=== PATIENT | male | born 1960 | race Caucasian/White ===

== ENCOUNTER 2023-09-28 02:46 | Day surgery (SDC) | payer BC, SELFPAY ==
[2023-09-28] VITALS (9 sets, daily range): BP systolic 130–161; BP diastolic 83–93; BMI 27.7; BMI 27.3
--- NOTE | 2023-09-28 04:44 | DOWNTIME ---
There was a [employer] Downtime on 09/28/2023 from 0111 to 09/28/2023 at 0405. Downtime documentation of patient's care, including medication administrations, has been reconciled in the electronic record per guidelines. Refer to the
patient's paper chart under the miscellaneous tab to see printed paper medication records and downtime forms.
[2023-09-28 04:57] LABS: % Basophils 0.3 % (0-2); % Eosinophils 0.8 % (0-6); % Immature Granulocytes 0.3 % (0-0.5); % Lymphocytes 24.6 % (20.5-51.1); % Monocytes 5.9 % (1.7-9.3); % Neutrophils 68.1 % (42.2-75.2); Absolute Eosinophils 0.1 10^3/uL (0-0.7); Absolute Monocytes 0.7 10^3/uL (0.1-0.6); Absolute Neutrophils 8.2 10^3/uL (1.4-6.5); Hematocrit 44.6 % (39.0-52.0); Hemoglobin 16.1 g/dL (13.0-18.0); Mean Corp Hgb Conc. 36.1 g/dL (33.0-37.0); Mean Corpuscular Hgb 33.7 pg (27.0-31.0); Mean Corpuscular Volume 93.3 fL (80.0-94.0); Mean Platelet Volume 9.7 fL (7.4-10.4); Nucleated Red Blood Cells % 0 % (-); Platelet Count 211 10^3/uL (130-400); Red Blood Cell Count 4.78 10^6/uL (4.70-6.10); Red Cell Dist. Width 11.8 % (11.5-14.5)
[2023-09-28 05:07] LABS: ALT (SGPT) 26 U/L (0-50); AST (SGOT) 29 U/L (17-59); Albumin 4.6 g/dl (3.5-5.0); Alkaline Phosphatase 87 U/L (38-126); Blood Urea Nitrogen 19 mg/dl (9-20); Calcium 9.9 mg/dl (8.4-10.2); Carbon Dioxide 20 mmol/L (22-30); Chloride 101 mmol/L (98-107); Glucose 176 mg/dl (70-99); Potassium 3.9 mmol/L (3.5-5.1); Sodium 135 mmol/L (135-145); Total Bilirubin 1.2 mg/dl (0.2-1.3); eGFR > 60.00
--- NOTE | 2023-09-28 05:10 | ED.GENMED ---
History of Present Illness
General
Chief Complaint: Abdominal Pain
Source: patient
Exam Limitations: none
Nursing documentation reviewed up to this point in time: agreed with
History of Present Illness
History of Present Illness:
63-year-old male with history as documented presents to the emergency room for evaluation of abdominal and flank pain. Patient reports onset of symptoms yesterday morning and they have been waxing and waning throughout the day. He reports that
this evening pain began to radiate towards the right low back/flank and became much more intense. Associated with nausea and vomiting. No diarrhea in fact patient says he has been constipated for the past 2 days. Denies any fevers or chills.
Denies any dysuria, hematuria, change in urinary frequency. He denies similar symptoms in the past. He denies any history of prior abdominal surgeries.
Review of Systems
Review of Systems
All Other Systems: ROS reviewed and negative except as documented in HPI and ROS
Constitutional: Denies fever or chills
Respiratory: Denies trouble breathing
Cardiac: Denies chest pain
ABD/GI: Reports abdominal pain, nausea, vomiting and constipated; Denies diarrhea
: Reports flank pain; Denies dysuria, frequency or bleeding
Musculoskeletal: Reports back pain; Denies neck pain
Neurological: Denies headache, weakness or numbness
Phy Exam
Physical Exam
Physical Exam:
General: Awake, alert, oriented x3; appears very uncomfortable
Head: Normocephalic, atraumatic
Eyes: Conjunctiva normal, sclera anicteric
Throat: Airway intact, handling secretions
Neck: Trachea midline, supple without meningismus
Lungs: Clear to auscultation bilaterally, no wheezing, rales, rhonchi
Heart: Tachycardia with regular rhythm, no murmurs, gallops, or rubs
Abd: Soft, non distended, nontender with no masses
Back: No CVA tenderness
Neuro: Cranial nerves grossly intact, speech fluid
Skin: no rash
Extremities: No edema in extremities, warm and well-perfused
Scores
Heart Failure Risk
Heart Failure Risk Score: Not Applicable
Heart Score for Chest Pain Patients
STEMI patient?: Not applicable
Withdrawal Assessment of Alcohol
Withdrawal Assessment Completed?: Not applicable
Course
Orders/Labs/Results
Orders:
Orders
09/28/23
CT Abd/pel Without Iv Or Oral Urgent
Reason For Exam: rt flank pain
09/28/23 03:20
Complete Blood Count/With Diff Routine
Comprehensive Metabolic Panel Routine
09/28/23 05:04
0.9% Sodium Chloride 500 ml [Nss] 500 ml IV BOLUS
Ketorolac [Toradol] 15 mg IV NOW STA
09/28/23 05:07
UROLOGY CONSULT Urgent
Consulting Provider: Breezy Haddad
Was physician already notified: Yes
Abnormal Lab Results
09/28/23
03:20
WBC 12.0 H 10^3/uL
(4.8-10.8)
MCH 33.7 H pg
(27.0-31.0)
Absolute Neuts (auto) 8.2 H 10^3/uL
(1.4-6.5)
Absolute Monos (auto) 0.7 H 10^3/uL
(0.1-0.6)
Carbon Dioxide 20 L mmol/L
(22-30)
Glucose 176 H mg/dl
(70-99)
09/28/23 03:20
09/28/23 03:20
MDM/Problems Addressed
Differential Diagnosis Includes:
Nephrolithiasis, UTI/pyelonephritis, appendicitis, enteritis, constipation
MDM/Problems Addressed:
63-year-old male presents for evaluation of abdominal pain now radiating to the right low back/flank waxing and waning intensity all day but generally worsening. Associate with nausea and vomiting as well as some constipation. Appears quite
uncomfortable, vital signs and exam as documented. Plan to place an IV check labs including a CBC and a CMP, urinalysis. Will send for CT of the abdomen pelvis. Will treat pain and nausea. Provide IV fluids. Monitor closely reassess after the
above.
Labs reviewed: CBC shows slight leukocytosis to 12. CMP shows no clinically significant abnormalities. CT of the abdomen pelvis read by vision radiology: Patient has a 6 mm stone in the right ureter with mild right hydronephrosis. Patient's pain
has been quite poorly controlled here has had multiple rounds of parenteral pain control with at best transient control. Will plan to admit for continued management of his obstructive kidney stone. Discussed with urology for consultation.
Discussed with hospitalist for admission.
*Radiology
Radiology exam reviewed: radiology read reviewed
*Pulse Oximetry
Patient hypoxic: no
*Critical Care Note
Total Time (30-74mins, 75-104mins- exclusive of procedures): Not Applicable
Data Reviewed
Source: patient and spouse
Patient Management
Discussion with other providers: Hospitalist (Discussed with hospitalist) and Automotive Shop Foreman (Discussed with urology)
Escalation/DeEscalation of care consider admission/obs:
Admission indicated
ED Attending Note
-
Portions of this chart may have been created with voice recognition software.� Occasional wrong word or��sound alike� substitutions may have occurred due to the inherent limitations of voice recognition software.
Discharge Plan
Departure
Patient Disposition: Admit
Date of Disposition: 09/28/23
Time of Disposition: 05:13
Admit to doctor: Mitchell
Presentation/result/management discussed w/ accepting MD/DO: Hospitalist
Discharge Problem:
Right nephrolithiasis
Referrals:
Richard Herring DO [Family Provider] -
[2023-09-28] MEDS: TORADOL 15 MG IV (05:12)
[2023-09-28] MEDS: NSS 500 IV (05:13)
--- NOTE | 2023-09-28 05:26 | HPS.HSE ---
Family Physician
-
Family Physician: Richard Herring
Chief Complaint
-
abdominal pain especially Rt flank pain
History of Present Illness
HPI
63M HX GERD on PPI pw acute waxing and waning abdominal pain especially Rt flank pain since yesterday. It is very severe this am and came to ER.
Associated with N/V.
Reports similar attack twice in 2months
No prior HX nephrolithiasis
ROS
Denied fever and chills
Denies any dysuria, hematuria, change in urinary frequency
Medical History
Past Medical History
Past Medical History: Reports GERD (on PPI )
Past Surgical History: Reports Other
Social History
Tobacco: Non-smoker
Alcohol: Daily ( a glass of Gin and tonic daily - 5days a week )
Drug: None
Personal:
Living: With Family
Family History
Family History: Not pertinent
Allergies / Home Medications
Allergies reflects when Allergies were last updated in [employer].
Home Medications with original date entered in [employer]
Allergy/Medication List:
Pending Rx reconcilliation
If medication reconciliation has not been performed, why?: Medication List N/A
Review of Systems
-
Constitutional: Reports No Symptoms
EENT: Reports No Symptoms
Respiratory: Reports No Symptoms
Cardiac: Reports No Symptoms
Abdomen/GI: Reports No Symptoms
: Reports Flank Pain (Rt ); Denies Dysuria or Frequency
Musculoskeletal: Reports No Symptoms
Skin: Reports No Symptoms
Neurological: Reports No Symptoms
Endocrine: Reports No Symptoms
Hematologic/Lymphatic: Reports No Symptoms
Psych: Reports No Symptoms
Physical Exam
Physical Exam
General: Comfortable and Conversant; No Respiratory Distress
HEENT: Anicteric and PERRLA
Respiratory: Clear
Cardiac: S1/S2 and Regular Rhythm
Breast: Deferred by me
GI: Soft, Non Tender and Normal Bowel Sounds
Rectal: Deferred by Provider
Genito-urinary: No costovertebral tender
Musculoskeletal: No Edema
Skin: Warm; No Rash
Neuro: AO x 3 and No Motor Deficits
Psych: Calm
Laboratory Results
-
09/28/23 03:20
09/28/23 03:20
Laboratory Results
Total Bilirubin 1.2 mg/dl (0.2-1.3) 09/28/23 03:20
AST 29 U/L (17-59) 09/28/23 03:20
ALT 26 U/L (0-50) 09/28/23 03:20
Alkaline Phosphatase 87 U/L (38-126) 09/28/23 03:20
Data Reviewed
-
CT Scan: Report Reviewed by me
Lab Data: Labs Reviewed by me
Impression/Plan
-
Data
WCC 12
Unremarkable BMP
BG [address] AP without contrast
- 6mm stone within distal Rt ureter c/b mild Rt HN
- Non obstructive Rt nephrolithiasis
No prior hospitalist admission:
ASSESSMENT & PLAN
Acute colicky obstructive 6mm distal Rt ureteric stone c/b mild Rt HN
Non obstructive Rt nephrolithiasis
Afebrile + mild leucocytosis - not yet infected
- NPO and IVF
- PRN IV Toradol analgesia
- PRN anti emetics
- UA
- Observing off ABx
- consult
DVT Px: SCD
Code: full
Obs MS
--- NOTE | 2023-09-28 06:40 | PTCARENOTE ---
Received pt from ED via stretcher. Pt ambulated to bed independently. AAOx3. No complaints of pain. Pt verbalized understanding of call chaidez. Call chaidez within close reach. Will inform dayshift RN.
--- NOTE | 2023-09-28 07:21 | CONS.URO ---
Consultation
-
Date/Time Consultation Performed: 0650 09/28/21
Performing Provider: Boo
Reason for Consultation: right ureteral stone
Medical History
History of Present Illness
prodromal right flank pains over the past weeks; pain escalated to intolerability prompting presentation to ED
no prior stones
no fevers/chills/sweats
Past Medical History
Past Medical History: GERD
Family History
Family History: Reviewed & Not Pertinent
Allergies/Home Medications
Allergies
Allergy/AdvReac Type Severity Reaction Status Date / Time
No Known Allergies Allergy Unverified 09/28/23 06:36
Home Medications
Medication Instructions Recorded Confirmed Type
omeprazole 40 mg capsule,delayed 40 mg PO DAILY 09/28/23 09/28/23 History
release
Physical Exam
Vital Signs
Vital Signs
Temp Pulse Resp BP Pulse Ox
97.9 F 86 20 161/92 94
09/28/23 06:34 09/28/23 06:34 09/28/23 06:34 09/28/23 06:34 09/28/23 06:34
Lab / Testing Results
Laboratory Results
09/28/23 03:20
09/28/23 03:20
Physical Exam
adult male in NAD
General: No Apparent Distress
GI: Soft, Non Tender and Non Distended
Genito-urinary: No Costovertebral Tend
Neuro: Awake, Alert and Oriented
Psych: Calm and Intact Judgement
Assessment / Plan
-
7.5 mm lower right ureteral stone with moderate hydroureteronephrosis and perinephric stranding
Patient offered outpatient pain management and trial of stone passage
OR
right ureteroscopy, laser lithotripsy and stenting TODAY
he indicates that he will contemplate options
posted for OR pending his decision
Data Reviewed
-
CT Scan: Image personally visualized and interpreted (7.5 mm lower right ureteral stone with moderate hydroureteronephrosis and perinephric stranding)
Lab Data: Labs Reviewed
Old Records: Reviewed
[2023-09-28] MEDS: NSS 1000 IV (07:57)
[2023-09-28] MEDS: DILAUDID 0.5 MG IV (08:31)
[2023-09-28] MEDS: DILAUDID 1 MG IV (11:06)
[2023-09-28] MEDS: FLOMAX 0.400000000000000022 MG PO (11:07)
[2023-09-28] MEDS: COMPAZINE 10 MG IV (11:07)
--- NOTE | 2023-09-28 12:10 | CM ---
Patient seen at bedside with present. Patient states that he lives with in a 2 story home with . Patient has no DME and his PCP is VALERIE Sanchez in [place] on [facility]. Patient given OBS form and is reviewing it. Patient plan is
for home with no needs. CM will continue to follow for discharge planning needs.
Plan; home with no needs.
--- NOTE | 2023-09-28 12:14 | W.PN.HOSP.TC ---
Today's Communication/Plan
-
Right ureteroscopy, laser lithotripsy and stenting today
NPO and IVF
IV Dilaudid prn for pain
ondansetron prn
UA pending
Ancef
Assessment / Plan
Assessment / Plan
No prior� hospitalist admission:
Erectile dysfunction
GERD
Impression
Presentation with right flank tenderness.
Mild leukocytosis, patient afebrile.
Plan
Presentation with right flank tenderness.
-CTA without contrast with 7.5 mm nonobstructive right nephrolithiasis and moderate hydroureteronephrosis.
-Mild leukocytosis, patient afebrile
-Urology consulted.
-Right ureteroscopy, laser lithotripsy and stenting today.
- NPO and IVF
-Flomax
-Tylenol as needed
-Continue Ancef
-IV Dilaudid for pain.
-Ondansetron as needed.
-UA pending.
-Observe clinically
Anticipated Discharge: Within 24 hours
Subjective/Interval History
-
Date of Service: September 28, 2023
Pt is a 63M with Past medical hx of GERD on PPI who presented to the ED with an acute right flank pain that started yesterday. Patient stated that the pain waxes and wanes and is rated 10/10 at its worst. Patient got the medication today
reports that pain is currently 6/10. He endorsed nausea and vomiting which has subsided with pain control. Patient has no prior history of kidney stones but has had 2 similar episodes in the past 2 months.
Objective Data
-
Labs:
Laboratory Results
09/28/23
03:20
WBC 12.0 H
Hgb 16.1
Hct 44.6
Plt Count 211
Sodium 135
Potassium 3.9
Chloride 101
Carbon Dioxide 20 L
BUN 19
Creatinine 0.9
Glucose 176 H
Calcium 9.9
Total Bilirubin 1.2
AST 29
ALT 26
Alkaline Phosphatase 87
Vital Signs:
Vital Signs
Temp Pulse Resp BP Pulse Ox
98.1 F 83 16 138/84 100
09/28/23 07:44 09/28/23 07:44 09/28/23 07:44 09/28/23 07:44 09/28/23 08:00
Review of Systems
-
History Source: Patient
All other systems: Not reviewed unless documented
Constitutional: Reports No Symptoms; Denies Fever
EENT: Reports No Symptoms Reported
Respiratory: Reports No Symptoms; Denies Cough or Trouble Breathing
Cardiac: Reports No Symptoms
Abdomen/GI: Reports Abdominal Pain and Vomiting; Denies Constipated
Genitourinary: Reports Other (Reports right flank pain); Denies Dysuria or Frequency
Musculoskeletal: Reports No Symptoms
Skin: Reports No Symptoms
Neuro: Reports No Symptoms
Endocrine: Reports No Symptoms
Hematologic / Lymphatic: Reports No Symptoms
Physical Exam
-
General: Well Developed, Comfortable and Conversant; Negative Respiratory Distress
HEENT: Normocephalic and Moist Mucous Membranes
Respiratory: Clear to Auscultation, Non Labored Respirations and Clear to Percussion
Cardiac: Regular Rhythm and S1/S2
GI: Soft, Nontender, Nondistended and Normal Bowel Sounds
Rectal: Deferred by Provider
Genito-urinary: Costovertebral Angle Tend (Right CVA tenderness)
Musculoskeletal: No Clubbing, No Cyanosis and No Edema
Skin: Warm and Dry; Negative Rash
Neuro: Awake, Alert, Oriented and AO x 3
Psych: Calm and Intact Judgement/Insight
Data Reviewed
-
CT Scan: Image personally visualized and interpreted, Report Reviewed by me and Discussed with Physician
Labs: Labs Reviewed by me and Discussed with Physician
[2023-09-28] MEDS: ANCEF 10 IV (13:57)
[2023-09-28] MEDS: Pyridium 200 MG PO (15:13)
--- NOTE | 2023-09-28 17:16 | W.DS.TRANS ---
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
-
Discharge Instructions:
Discharge Diagnosis/Procedures Right Ureteral Stone
Diet Regular
Instructions:
Stand-Alone Forms:
Changes to Home Medications: No
Discharge Medications:
DC Medications w/original date entered in [employer]
omeprazole 40 mg capsule,delayed release 40 mg PO DAILY Gastrointestinal Issue 09/28/23
Home Medication Changes
Pending Results: No
[2023-10-04 00:02] LABS: Stone Analysis Mass 20 mg
== END 2023-09-28 06:29 | disposition home or self-care (01) ==
LOC: EMR 02:46
PROVIDERS: ATTENDING PHYSICIAN Emergency Medicine; CONSULT PHYSICIAN Specialist; FAMILY PHYSICIAN Family Medicine; OTHER PHYSICIAN Internal Medicine
DX: N13.2 Hydronephrosis with renal and ureteral calculous obstruction (principal); K21.9 Gastro-esophageal reflux disease without esophagitis
CPT/HCPCS: 52356; 74018; 74176; 76000; 80053; 82365; 85025; C2617; G0378

== ENCOUNTER 2023-10-05 12:18 | Inpatient (IN) | payer BC, SELFPAY ==
[2023-10-05 09:40] VITALS: BP 128/100
[2023-10-05 09:51] VITALS: BMI 27.5
--- NOTE | 2023-10-05 10:07 | ED.GENMED ---
History of Present Illness
General
Chief Complaint: Post Operative Problem(s)
Source: patient, records and spouse
Time Seen by Provider: 10/05/23 09:56
Travel History
Have you had any contact with someone who has COVID-19?: No
Do you have any symptoms of coronavirus? Fever > 100 degrees, chills, cough, shortness of breath, sore throat, loss of taste or smell, muscle aches, or headache?: No
History of Present Illness
History of Present Illness:
63-year-old male status post ureteral stone removal and stent placement 1 week ago presenting to the emergency department today after patient started with dysuria, frequency/urgency and increasing right-sided flank pain on Tuesday accompanied with a
fever with Tmax of 101.5 and persistent nausea and vomiting with retching and dry heaving. Patient's had contacted his urology office who prescribed Levaquin and Pyridium but due to patient's persistent nausea and vomiting has had a hard time
tolerating these medications. Patient's recontacted the office today and patient was advised to come to the ER for further evaluation. Presently patient's symptoms bothering him the most are the urinary frequency and dysuria as well as
nausea/dry heaving. Patient reportedly had a low-grade temperature of 99.9 earlier this morning. No other concerns at this time.
Past History
Past History
ED Past Medical History: GERD and Other (Kidney stone status post lithotripsy)
ED Past Surgical History: Urological
Social History
Tobacco: Non-smoker
Alcohol: None
Drug: None
Personal:
Living: with family
Review of Systems
Review of Systems
All Other Systems: ROS reviewed and negative except as documented in HPI and ROS
Phy Exam
Physical Exam
Physical Exam:
GENERAL: Alert , appears very uncomfortable, persistently moaning
EYE: clear conjunctiva b/l
HEAD: NCAT
ENT: o/p clr, mmm.
CARDIAC: Tachycardic rate and rhythm, no murmur
LUNGS: Clear breath sounds bilaterally, no acute respiratory distress, no wheezes/rales/rhonchi
ABDOMEN: Soft, without focal tenderness, no r/g, right CVA tenderness
NEUROLOGICAL: Alert and oriented
SKIN: Warm and dry, skin intact.
MUSCULOSKELETAL: No edema, well perfused.
PSYCH: Normal and appropriate interaction.
Scores
Heart Failure Risk
Heart Failure Risk Score: Not Applicable
Heart Score for Chest Pain Patients
STEMI patient?: Not applicable
Withdrawal Assessment of Alcohol
Withdrawal Assessment Completed?: Not applicable
Course
Orders/Labs/Results
Orders:
Orders
10/05/23 Lunch
Regular
At Your Request: Full Participation
Does patient need a safe tray?: No
10/05/23 10:04
0.9% Sodium Chloride 1000 ml [Nss] 1,000 ml IV BOLUS
Ketorolac [Toradol] 30 mg IV NOW STA
Ondansetron Injectable [Zofran] 4 mg IV NOW STA
10/05/23 10:05
Basic Metabolic Panel Urgent
Complete Blood Count/With Diff Urgent
Lactic Acid Q4H
Comment: ON ICE, CANCEL 2ND ORDER IF FIRST LACTIC ACID LEVEL <2
Urinalysis Reflex To Culture Urgent
Date Specimen was Collected: 10/05/23
Time Specimen was Collected: 10:03
Urine Microscopic Reflex Cult Urgent
Blood Culture Q30M
UCHE Source: Blood/Venous
Specimen Description:
Comment: FROM 2 SEPARATE SITES
Urine Culture Urgent
UCHE Source: U
Specimen Description:
Date Specimen was Collected: 10/05/23
Time Specimen was Collected: 10:03
10/05/23 10:27
CefTRIAXone [Rocephin] 1,000 mg IV NOW STA
10/05/23 10:46
Sterile Water [Sterile Water For Injection] 10 ml .ROUTE .STK-MED ONE
10/05/23 10:56
Blood Culture Q30M
UCHE Source: Blood/Venous
Specimen Description:
Comment: FROM 2 SEPARATE SITES
10/05/23 11:22
Kidney & Bladder US [US Renal With Bladder] Urgent
Comment:
Reason For Exam: recent stent, fever, pain
10/05/23 11:29
Admit/Transfer Patient As Directed
Co-Sign Provider:
Level of Care: Inpatient admission
Assign to:: Medical/Surgical
Physician / Group: Radha
Diagnosis: Complicated UTI
Reason for Hospitalization: Above
Expected length of stay greater than two midnights?: Yes
ELOS- Estimated Length of Stay in days: 2
I certify the patient meets the requirements for IP care: Yes
10/05/23 11:31
Code Status As Directed
Resuscitation Status: Full Code
10/05/23 11:41
0.9% Sodium Chloride 1000 ml [Nss] 1,000 ml IV BOLUS
10/05/23 14:15
Lactic Acid Q4H
Comment: ON ICE, CANCEL 2ND ORDER IF FIRST LACTIC ACID LEVEL <2
Abnormal Lab Results
10/05/23
10:05
WBC 15.2 H 10^3/uL
(4.8-10.8)
MCH 33.5 H pg
(27.0-31.0)
Abs Immat Gran (auto) 0.1 H 10^3/uL
(0-0.05)
Absolute Neuts (auto) 11.3 H 10^3/uL
(1.4-6.5)
Absolute Monos (auto) 1.8 H 10^3/uL
(0.1-0.6)
Lymphocytes % 12.3 L %
(20.5-51.1)
Monocytes % 12.1 H %
(1.7-9.3)
Sodium 129 L mmol/L
(135-145)
Carbon Dioxide 18 L mmol/L
(22-30)
Glucose 148 H mg/dl
(70-99)
Urine Ketones 1+ A
(Negative)
Ur Occult Blood Reflex 4+ A
(Negative)
Leukocyte Esterase Rfl 2+ A
(Negative)
Urine RBC 26-30 A /HPF
(0-2)
Urine WBC (Reflex) 11-15 A /HPF
(0-5)
Urine Bacteria (Reflex) Few A
(Negative)
Urine Glucose Trace A
(Negative)
Urine Albumin (Reflex) 2+ A
(Neg - Trace)
10/05/23 10:05
10/05/23 10:05
Vital Signs
Initial and Last Documented VS:
Initial Vital Signs
Pulse Resp Pulse Ox
108 16 99
10/05/23 09:36 10/05/23 09:36 10/05/23 09:36
Last Documented Vital Signs
Temp Pulse Resp BP Pulse Ox
98.0 F 83 20 134/79 98
10/05/23 11:31 10/05/23 10:49 10/05/23 10:49 10/05/23 10:49 10/05/23 10:49
MDM/Problems Addressed
Differential Diagnosis Includes:
Pyelonephritis, cystitis, bacteremia, ureteral colic secondary to stent placement
MDM/Problems Addressed:
63-year-old male present emergency department for evaluation of urinary frequency/urgency/dysuria as well as fevers and persistent nausea/retching in the setting of recent stone retrieval and stent placement. Patient was initiated on oral
antibiotics 2 days ago however has had difficult time tolerating this medication. Based off of presenting symptoms I am most concerned with UTI bacteremia as cause of patient's symptoms. Will check labs, urine and treat with Toradol, Zofran and IV
fluids. Reassessment following and possibility of antibiotics and admission.
*Pulse Oximetry
Patient hypoxic: no
*Critical Care Note
Total Time (30-74mins, 75-104mins- exclusive of procedures): Not Applicable
Data Reviewed
Review of Other/Old Records Reveals: Labs, Records, Radiology Studies and Discharge Summary
Source: patient and spouse
Patient Management
Discussion with other providers: Hospitalist and [employer] Manager
Escalation/DeEscalation of care consider admission/obs:
Patient with a leukocytosis of 15,000. Mild hyponatremia. Urine with 2+ leukocytes and 11-15 WBCs consistent with suspected UTI/pyelonephritis. Given recent surgical procedure will admit for IV antibiotics, continued fluids and symptomatic
relief. Urology team is aware and will consult. Hospitalist accepts patient for continued evaluation and treatment.
ED Attending Note
-
Portions of this chart may have been created with voice recognition software.� Occasional wrong word or��sound alike� substitutions may have occurred due to the inherent limitations of voice recognition software.
Discharge Plan
Departure
Patient Disposition: Admit
Date of Disposition: 10/05/23
Time of Disposition: 10:39
Presentation/result/management discussed w/ accepting MD/DO: Hospitalist
Discharge Problem:
Acute pyelonephritis
Interventions
Interventions:
*Risk Screen - Suicide Last Done: 10/05/23 09:51
*General Assessment Last Done: 10/05/23 09:51
*Neglect/Abuse Screening Last Done: 10/05/23 09:51
*ED COVID-19 Vaccine History Last Done: 10/05/23 09:36
ED-Skin Assessment Last Done: 10/05/23 10:16
[2023-10-05] MEDS: NSS 1000 IV ×4 (10:10→23:27)
[2023-10-05] MEDS: ZOFRAN 4 MG IV ×2 (10:11→14:58)
[2023-10-05] MEDS: TORADOL 30 MG IV (10:11)
[2023-10-05 10:15] LABS: % Basophils 0.1 % (0-2); % Eosinophils 0.1 % (0-6); % Immature Granulocytes 0.5 % (0-0.5); % Lymphocytes 12.3 % (20.5-51.1); % Monocytes 12.1 % (1.7-9.3); % Neutrophils 74.9 % (42.2-75.2); Absolute Immature Granulocytes 0.1 10^3/uL (0-0.05); Absolute Lymphocytes 1.9 10^3/uL (1.2-3.4); Absolute Monocytes 1.8 10^3/uL (0.1-0.6); Absolute Neutrophils 11.3 10^3/uL (1.4-6.5); Hemoglobin 16.1 g/dL (13.0-18.0); Mean Corp Hgb Conc. 36.6 g/dL (33.0-37.0); Mean Corpuscular Hgb 33.5 pg (27.0-31.0); Mean Corpuscular Volume 91.5 fL (80.0-94.0); Mean Platelet Volume 9.5 fL (7.4-10.4); Nucleated Red Blood Cells % 0 % (-); Platelet Count 146 10^3/uL (130-400); Red Blood Cell Count 4.81 10^6/uL (4.70-6.10); Red Cell Dist. Width 11.5 % (11.5-14.5); White Blood Cell Count 15.2 10^3/uL (4.8-10.8)
[2023-10-05 10:16] LABS: Urine Albumin 2+ (Neg - Trace); Urine Bilirubin Negative (Negative); Urine Character Clear (Clear); Urine Color Yellow; Urine Glucose Trace (Negative); Urine Ketone 1+ (Negative); Urine Leukocyte 2+ (Negative); Urine Nitrite Negative (Negative); Urine Occult Blood 4+ (Negative); Urine Specific Gravity 1.015 (<1.030); Urine Urobilinogen Negative (Neg - 1+)
[2023-10-05 10:27] LABS: Lactic Acid 1.5 mmol/L (0.7-2.0)
[2023-10-05 10:34] LABS: Blood Urea Nitrogen 14 mg/dl (9-20); Calcium 9.7 mg/dl (8.4-10.2); Carbon Dioxide 18 mmol/L (22-30); Chloride 100 mmol/L (98-107); Estimated Creatinine Clearance 78 ml/min; Glucose 148 mg/dl (70-99); Sodium 129 mmol/L (135-145); Urine Mucus Many; eGFR > 60.00
[2023-10-05 10:36] LABS: Urine Red Blood Cell 26-30 /HPF (0-2)
[2023-10-05 10:37] LABS: Urine Bacteria Few (Negative)
[2023-10-05 10:49] VITALS: BP 134/79
[2023-10-05] MEDS: ROCEPHIN 1000 MG IV (10:54)
--- NOTE | 2023-10-05 11:37 | HPS.HSE ---
Family Physician
-
Family Physician: Richard Herring
Chief Complaint
-
Nausea and vomiting.
Urinary frequency.
History of Present Illness
Patient is a 63 years old male with no prior medical history who was admitted last week on 09/28 with right-sided nephrolithiasis and hydronephrosis. At that time patient underwent cystoscopy with stone manipulation and stent placement. Patient was
discharged home to follow-up with urology for stent removal. 2 days prior to this admission patient developed urinary symptoms including frequency and lower abdominal discomfort. He denies any flank pain. He was prescribed levofloxacin and
Pyridium, although presents today with worsening symptoms including nausea and vomiting and inability to take oral medications. He reports fever and chills at home prior to presentation.
While emergency room patient is hemodynamically stable, although afebrile with temperature 101.
Medical History
Past Medical History
Past Medical History: Denies Arrhythmia, CAD, Cancer, CHF, COPD or IDDM
Past Surgical History: Reports Urological (Cystoscopy 09/28)
Social History
Tobacco: Non-smoker
Drug: None
Personal:
Living: With Family
Family History
Family History: Not pertinent
Allergies / Home Medications
Allergies reflects when Allergies were last updated in [employer].
Home Medications with original date entered in [employer]
Allergy/Medication List:
Allergies
Allergy/AdvReac Type Severity Reaction Status Date / Time
No Known Allergies Allergy Verified 10/05/23 09:38
Home Medications
omeprazole 40 mg capsule,delayed release 40 mg PO DAILY Gastrointestinal Issue 09/28/23
cholecalciferol (vitamin D3) 25 mcg (1,000 unit) tablet 25 mcg PO DAILY Supplement 10/05/23
cyanocobalamin (vitamin B-12) 1,000 mcg tablet 1,000 mcg PO DAILY Supplement 10/05/23
ibuprofen 200 mg tablet (Advil) 600 mg PO ONCE PRN mild pain 10/05/23
levofloxacin 500 mg tablet 500 mg PO QPM Infection 10/05/23
magnesium 250 mg tablet 250 mg PO DAILY Supplement 10/05/23
therapeutic multivitamin 1 tab PO DAILY Supplement 10/05/23
Review of Systems
-
A 12 point ROS was completed and negative except as noted: Yes
Abdomen/GI: Reports See HPI
: Reports See HPI
Physical Exam
Vital Signs
Vital Signs
Temp Pulse Resp BP Pulse Ox
98.0 F 83 20 134/79 98
10/05/23 11:31 10/05/23 10:49 10/05/23 10:49 10/05/23 10:49 10/05/23 10:49
Physical Exam
General: Well Developed, Well Nourished and No Apparent Distress
HEENT: NormoCephalic, Moist mucous membranes and Atraumatic
Respiratory: Clear
Cardiac: S1/S2 and Regular Rhythm; No Murmur or Rub
GI: Soft, Non Tender, Non Distended and Normal Bowel Sounds; No Organomegaly
Rectal: Deferred by Provider
Musculoskeletal: No Clubbing, No Cyanosis and No Edema
Skin: No Rash
Neuro: Nonfocal/grossly intact
Laboratory Results
-
10/05/23 10:05
10/05/23 10:05
Laboratory Results
Lactic Acid 1.5 mmol/L (0.7-2.0) 10/05/23 10:05
Total Bilirubin Cancelled 10/05/23 10:05
AST Cancelled 10/05/23 10:05
ALT Cancelled 10/05/23 10:05
Alkaline Phosphatase Cancelled 10/05/23 10:05
Data Reviewed
-
Lab Data: Labs Reviewed by me
Impression/Plan
-
IMPRESSION:
Presentation with urinary frequency and fever.
Complicated UTI.
Right-sided nephrolithiasis with hydronephrosis, status post cystoscopy with stent placement on 09/28
Hyponatremia secondary to dehydration.
Normal anion gap metabolic acidosis with normal lactic acid level.
PLAN:
Complicated UTI.
Right ureteral stent in place.
Admit with urology consult
Antibiotics: Ceftriaxone pending urine and blood cultures.
Hemodynamically stable with no evidence of generalized infection/sepsis. Normal lactic acid level.
Continue aggressive IV hydration.
Monitor hemodynamics closely
Bladder/renal sonogram.
Urology consultation
Hyponatremia.
Normal anion gap metabolic acidosis
Lactic acid level normal.
Suspect secondary dehydration
Continue isotonic solution
Follow BMP
[2023-10-05 13:37] VITALS: BP 118/72
[2023-10-05 14:00] VITALS: BP 120/71; BMI 27.5
[2023-10-05 15:55] VITALS: BP 131/76
[2023-10-05] MEDS: HEPARIN 5000 UNITS SC (19:57)
[2023-10-05 23:26] VITALS: BP 122/69
[2023-10-06 07:27] VITALS: BP 130/76
--- NOTE | 2023-10-06 07:45 | W.PN.UPDATE ---
Addendum entered and electronically signed by Chaim Zacarias MD 10/06/23 08:36:
Scheduled for cysto/stent removal in office 10/10/22 currently.
Will d/w Dr. Haddad re: timing.
Original Note:
Update Note
Progress Note Update
63M presenting to ER w/ fevers, persistent nausea, vomiting, frequency, urgency, dysuria, and worsening right flank pain.
Low grade temp of 99.9 @home yesterday AM.
Temp 101.5 in ER.
After calling Urology office 10/03 w/ low grade temp, chills, and dysuria - Levaquin 500 mg daily x7 days + Pyridium prescribed.
Noted worsening symptoms over next 2 days - advised by office to go to ER for evaluation.
09/28/23: s/p (uncomplicated) right ureteroscopy/laser lithotripsy/stone extraction/stent placement (Dr. Haddad).
Discharged home same day w/ outpatient F/U for stent removal.
09/28: KUB => right stent in good position, no visible right ureteral stone.
09/28: TIMOTHY => no right hydronephrosis, stent visualized in position.
A/P:
cUTI - likely post-instrumentation of tract
Right ureteral stone s/p URS/LL/stone extraction/stent placement
- IV Ceftriaxone pending Cx S/S
- UCx/BCx sent
- Pyridium prn
D/w ER.
D/w Hospitalist.
[2023-10-06] MEDS: NON-FORMULARY ITEM 1 UNIT PO (08:19)
[2023-10-06] MEDS: HEPARIN 5000 UNITS SC ×2 (08:19→20:51)
[2023-10-06] MEDS: NSS 1000 IV (08:20)
[2023-10-06] MEDS: ROCEPHIN 1000 MG IV (10:31)
[2023-10-06] MEDS: STERILE WATER FOR INJECTION 10 ML IV (10:31)
[2023-10-06 15:26] VITALS: BP 132/73
--- NOTE | 2023-10-06 17:08 | W.PN.HOSP.TC ---
Today's Communication/Plan
-
Continue IV antibiotics
Assessment / Plan
Assessment / Plan
Impression:
Complicated UTI/right pyelonephritis
Right nephrolithiasis status post cystoscopy with stone manipulation and JJ stent in place since 09/28.
Plan:
Afebrile
Hemodynamically stable
Improved dysuria.
Noted elevated white count
Blood culture/urine culture negative to date
Suspected partially treated UTI since patient took 1-2 doses of levofloxacin prior to presentation
Imaging with resolution of right hydronephrosis and stent in place.
Continue IV antibiotics for another 24 hours
Monitor temperature curve
Follow WBC.
Discussed with urology
Anticipated Discharge: 24 - 48 hours
Subjective/Interval History
-
Date of Service: October 06, 2023
Objective Data
-
Vital Signs:
Vital Signs
Temp Pulse Resp BP Pulse Ox
97.9 F 83 16 132/73 98
10/06/23 15:26 10/06/23 15:26 10/06/23 15:26 10/06/23 15:26 10/06/23 15:26
I&O
10/05/23 10/06/23 10/07/23
06:59 06:59 06:59
Intake Total 1240 / 1240
Output Total 775 / 775
Balance 465 / 465
Physical Exam
-
General: Well Developed and No Apparent Distress
HEENT: Normocephalic, Atraumatic and Moist Mucous Membranes
Respiratory: Clear to Auscultation
Cardiac: Regular Rhythm and S1/S2; Negative Murmur, Rub or Gallop
GI: Soft, Nontender, Nondistended and Normal Bowel Sounds; Negative Organomegaly
Rectal: Deferred by Provider
Musculoskeletal: No Clubbing, No Cyanosis and No Edema
Skin: Negative Rash
Neuro: Nonfocal/Grossly Intact
[2023-10-06] MEDS: NSS IV (17:39)
[2023-10-06 23:10] VITALS: BP 129/74
[2023-10-07 07:15] VITALS: BP 139/87
[2023-10-07 07:40] LABS: % Basophils 0.2 % (0-2); % Eosinophils 1.9 % (0-6); % Immature Granulocytes 0.3 % (0-0.5); % Lymphocytes 23.7 % (20.5-51.1); % Neutrophils 62.9 % (42.2-75.2); Absolute Eosinophils 0.1 10^3/uL (0-0.7); Absolute Lymphocytes 1.4 10^3/uL (1.2-3.4); Absolute Monocytes 0.7 10^3/uL (0.1-0.6); Absolute Neutrophils 3.7 10^3/uL (1.4-6.5); Hematocrit 37.9 % (39.0-52.0); Hemoglobin 13.8 g/dL (13.0-18.0); Mean Corp Hgb Conc. 36.4 g/dL (33.0-37.0); Mean Corpuscular Hgb 33.5 pg (27.0-31.0); Mean Platelet Volume 10.2 fL (7.4-10.4); Nucleated Red Blood Cells % 0 % (-); Platelet Count 146 10^3/uL (130-400); Red Blood Cell Count 4.12 10^6/uL (4.70-6.10); Red Cell Dist. Width 11.7 % (11.5-14.5); White Blood Cell Count 5.9 10^3/uL (4.8-10.8)
[2023-10-07] MEDS: NON-FORMULARY ITEM 1 UNIT PO (07:43)
[2023-10-07] MEDS: HEPARIN SC (07:45)
[2023-10-07 08:37] LABS: Blood Urea Nitrogen 11 mg/dl (9-20); Calcium 9.3 mg/dl (8.4-10.2); Carbon Dioxide 25 mmol/L (22-30); Chloride 104 mmol/L (98-107); Estimated Creatinine Clearance 100 ml/min; Glucose 130 mg/dl (70-99); Potassium 3.7 mmol/L (3.5-5.1); Sodium 138 mmol/L (135-145); eGFR > 60.00
[2023-10-07] MEDS: STERILE WATER FOR INJECTION 10 ML IV (09:47)
[2023-10-07] MEDS: ROCEPHIN 1000 MG IV (09:47)
--- NOTE | 2023-10-07 10:53 | W.DS.TRANS ---
DC Summary - Attending Radiologist
-
Discharge Instructions:
Diet Regular
Activity No restrictions
Driving Restrictions As prior to admission
Instructions:
Stand-Alone Forms:
Changes to Home Medications: No
Discharge Medications:
DC Medications w/original date entered in [employer]
omeprazole 40 mg capsule,delayed release 40 mg PO DAILY Gastrointestinal Issue 09/28/23
cholecalciferol (vitamin D3) 25 mcg (1,000 unit) tablet 25 mcg PO DAILY Supplement 10/05/23
cyanocobalamin (vitamin B-12) 1,000 mcg tablet 1,000 mcg PO DAILY Supplement 10/05/23
ibuprofen 200 mg tablet (Advil) 600 mg PO ONCE PRN mild pain 10/05/23
levofloxacin 500 mg tablet 500 mg PO QPM Infection 10/05/23
magnesium 250 mg tablet 250 mg PO DAILY Supplement 10/05/23
therapeutic multivitamin 1 tab PO DAILY Supplement 10/05/23
Home Medication Changes
Pending Results: No
--- NOTE | 2023-10-07 10:54 | W.DCSUMMARY ---
Documented by User: Jonathon López MD, Resident 10/07/23 11:48
Discharge Summary
Discharge Data
Date of Admission: 10/05/23
Date of Discharge: 10/07/23
-
Pending Results: No
Hospital Course
Patient is a 63-year-old male, recently seen and discharged discharged same day on 09/28 from [facility] s/p uncomplicated right ureteroscopy/laser lithotripsy/removal of 7 mm distal right ureteral calculus/stent placement (Dr. Haddad).
Patient presented again to ED on 10/05 with fever, leukocytosis persistent nausea, vomiting, urinary frequency, urgency, dysuria, and worsening right flank pain. Patient had low-grade fever on 10/03 with chills and dysuria and was prescribed
Levaquin 500 mg daily x 7 days plus Pyridium by his urologist. Patient had already taken 2 doses of this medication. However, symptoms worsened over the next 2 days leading to his current presentation to the ED. Patient's abdominal x-ray and
renal ultrasound were both negative for renal, ureteral, or bladder calculus, with no hydronephrosis or obstructive uropathy.
Patient was seen in consultation with urology and was treated with IV ceftriaxone, antiemetics and IV fluid with resolution of his symptoms including leukocytosis, dysuria and vomiting. He remained hemodynamically stable and afebrile for the next
24 hours and is able to tolerate oral medications at the time of discharge. His blood culture and urine culture with no growth to date. Patient is now discharged home with instructions to follow-up with outpatient urologist for stent removal as
scheduled. patient was also instructed to complete the remaining 5 days course of Levaquin with specific instructions on how to take this medication with his home omeprazole to ensure maximum absorption and return to the ED if new fever or urinary
symptoms occurs.
Discharge Plan
-
Patient Disposition: Home (Routine Discharge)
Discharge Diagnosis/Procedures: Acute pyelonephritis
Diet: Regular
Activity: No restrictions
Driving Restrictions: As prior to admission
Referrals:
Gaibler, C., DO [Family Provider] -
Prescriptions:
Continued
omeprazole 40 mg Capsule,Delayed Release(Dr/Ec)
40 mg PO DAILY
cyanocobalamin (vitamin B-12) 1,000 mcg Tablet
1,000 mcg PO DAILY
therapeutic multivitamin Tablet
1 tab PO DAILY
ibuprofen [Advil] 200 mg Tablet
600 mg PO ONCE PRN (Reason: mild pain)
magnesium 250 mg Tablet
250 mg PO DAILY
levofloxacin 500 mg Tablet
500 mg PO QPM
Patient Comments:
10/05/2023, pt. filled this med. on 10/03/2023 and is instructed to take one tablet daily for 7 days. Per pt., he has taken two days worth of this antibiotic.
cholecalciferol (vitamin D3) 25 mcg (1,000 unit) Tablet
25 mcg PO DAILY
Discharge Orders:
Discharge Patient (As Directed); Ordered 10/07/23
Ordered By: Jonathon López
Discharge Date and Time
Discharge Date/Time: 10/07/23 12:03

Documented by User: Junior Garcia MD 10/07/23 16:20
Discharge Summary
Discharge Data
Date of Admission: 10/05/23
Date of Discharge: 10/07/23
Discharge Plan
-
Patient Disposition: Home (Routine Discharge)
Discharge Diagnosis/Procedures: Acute pyelonephritis
Diet: Regular
Activity: No restrictions
Driving Restrictions: As prior to admission
Referrals:
Richard Herring DO [Family Provider] -
Prescriptions:
Continued
omeprazole 40 mg Capsule,Delayed Release(Dr/Ec)
40 mg PO DAILY
cyanocobalamin (vitamin B-12) 1,000 mcg Tablet
1,000 mcg PO DAILY
therapeutic multivitamin Tablet
1 tab PO DAILY
ibuprofen [Advil] 200 mg Tablet
600 mg PO ONCE PRN (Reason: mild pain)
magnesium 250 mg Tablet
250 mg PO DAILY
levofloxacin 500 mg Tablet
500 mg PO QPM
Patient Comments:
10/05/2023, pt. filled this med. on 10/03/2023 and is instructed to take one tablet daily for 7 days. Per pt., he has taken two days worth of this antibiotic.
cholecalciferol (vitamin D3) 25 mcg (1,000 unit) Tablet
25 mcg PO DAILY
Discharge Orders:
Discharge Patient (As Directed); Ordered 10/07/23
Ordered By: Jonathon López
Discharge Date and Time
Discharge Date/Time: 10/07/23 12:03
--- NOTE | 2023-10-07 11:41 | W.PN.HOSP.TC ---
Addendum entered and electronically signed by Junior Garcia MD 10/07/23 16:22:
Patient seen and examined
Discussed with resident.
Discussed with urology.
Complicated UTI with right pyonephritis
Right ureteral stent in place
Overall improved being afebrile, decreased WBC
Transition back to Levaquin to complete 5-day course
Follow-up with urology on 10/10 for stent removal.
Original Note:
Today's Communication/Plan
-
Discontinue IV antibiotics, continue Levaquin for the next 5 days to complete course.
Follow-up outpatient urology for stent removal as planned.
Discharge planning
Assessment / Plan
Assessment / Plan
Impression:
Complicated UTI/right pyelonephritis
Right nephrolithiasis status post cystoscopy with stone manipulation and JJ stent in place since 09/28.
Plan:
Currently afebrile with normal white count.
Hemodynamically stable
Resolved dysuria, urgency, frequency, flank pain.
Blood culture/urine culture negative to date
Suspected partially treated UTI since patient took 1-2 doses of levofloxacin prior to presentation
Imaging with resolution of right hydronephrosis and stent in place.
Stop IV antibiotics. Continue Levaquin for the next 5 days to complete course.
Follow-up outpatient urology for stent removal as scheduled.
Anticipated Discharge: Today
Subjective/Interval History
-
Date of Service: October 07, 2023
Objective Data
-
Labs:
Laboratory Results
10/07/23
06:36
WBC 5.9
Hgb 13.8
Hct 37.9 L
Plt Count 146
Sodium 138 D
Potassium 3.7
Chloride 104
Carbon Dioxide 25
BUN 11
Creatinine 0.7
Glucose 130 H
Calcium 9.3
Vital Signs:
Vital Signs
Temp Pulse Resp BP Pulse Ox
97.3 F 79 18 139/87 96
10/07/23 07:15 10/07/23 07:15 10/07/23 07:15 10/07/23 07:15 10/07/23 07:15
I&O
10/06/23 10/07/23 10/08/23
06:59 06:59 06:59
Intake Total 1240 / 1240 1999
Output Total 775 / 775 1275 / 1275
Balance 465 / 465 725 / 725
Review of Systems
-
History Source: Patient
All other systems: Not reviewed unless documented
Constitutional: Reports No Symptoms; Denies Fever
EENT: Reports No Symptoms Reported
Respiratory: Reports No Symptoms; Denies Cough or Trouble Breathing
Cardiac: Reports No Symptoms
Abdomen/GI: Denies Abdominal Pain, Vomiting or Constipated
Genitourinary: Reports Other (Reports right flank pain); Denies Dysuria or Frequency
Musculoskeletal: Reports No Symptoms
Skin: Reports No Symptoms
Neuro: Reports No Symptoms
Endocrine: Reports No Symptoms
Hematologic / Lymphatic: Reports No Symptoms
Physical Exam
-
General: Well Developed and No Apparent Distress
HEENT: Normocephalic, Atraumatic and Moist Mucous Membranes
Respiratory: Clear to Auscultation
Cardiac: Regular Rhythm and S1/S2; Negative Murmur, Rub or Gallop
GI: Soft, Nontender, Nondistended and Normal Bowel Sounds; Negative Organomegaly
Rectal: Deferred by Provider
Musculoskeletal: No Clubbing, No Cyanosis and No Edema
Skin: Warm; Negative Rash
Neuro: Awake, Alert, AO x 3 and Nonfocal/Grossly Intact
Psych: Calm and Intact Judgement/Insight
Data Reviewed
-
Diagnostic Radiology: Image personally visualized and interpreted, Report Reviewed by me and Discussed with Physician
Ultrasound: Image personally visualized and interpreted, Report Reviewed by me and Discussed with Physician
Labs: Labs Reviewed by me and Discussed with Physician
Old Records: Reviewed
--- NOTE | 2023-10-07 13:03 | CM ---
CM following re: d/c planning
Chart reviewed
CM met with the patient at bedside; IA completed
Pt reports residing with his spouse in a 3[address] with 1STE
[employer] patient is independent at baseline
Pt has no past hx of VN/SNF/DME
Pt does have prescription coverage and rx's are filled at [facility] on [address] [place]
Pt PCP-Richard Herring
Pt has no skilled needs noted
Pt is medically stable to be released & transport is confirmed
PLAN; d/c home no needs
== END 2023-10-07 12:03 | disposition home or self-care (01) | DRG 690 ==
LOC: 4 EAST ACU 12:18
PROVIDERS: Physician Assistant Medical; ADMITTING PHYSICIAN Internal Medicine; EMERGENCY PHYSICIAN Emergency Medicine; FAMILY PHYSICIAN Family Medicine
DX: N10 Acute pyelonephritis (principal); E87.1 Hypo-osmolality and hyponatremia; E87.20 Acidosis, unspecified; E86.0 Dehydration; N13.2 Hydronephrosis with renal and ureteral calculous obstruction
CPT/HCPCS: 74018; 76770; 80048; 81003; 81015; 83605; 85025; 87040; 87086; 96361; 96374; 96375; 99284

== ENCOUNTER → 2024-11-26 14:21 | Outpatient (REF) | payer OTHER, SELFPAY | LOC: RAD 14:21 | PROVIDERS: ATTENDING PHYSICIAN Family Medicine | DX: M54.50 Low back pain, unspecified (principal) | CPT/HCPCS: 72110 ==